=== PATIENT | female | born 1990 | race Asian ===

== ENCOUNTER 2021-12-20 10:41 | Emergency (ER) | payer OTHER ==
[~2021-12-20] VITALS: Ht 170.2 cm; Wt 81.6 kg
[2021-12-20] MEDS ORDERED: MOBIC7.5 M1 PO (11:35)
[2021-12-20] MEDS ORDERED: CYCL10TA35 PO (11:35)
[2021-12-20 11:40] VITALS: BP 141/75; TEMP 97.4
== END 2021-12-20 11:40 | disposition home or self-care (01) ==
LOC: ED 10:41
DX: M54.59 Other low back pain (principal); R11.2 Nausea with vomiting, unspecified
CPT/HCPCS: 81000; 81025; 96372; 99283; J1885

== ENCOUNTER 2022-12-31 06:25 | Emergency (ER) | payer OTHER ==
[~2022-12-31] VITALS: Ht 170.2 cm; Wt 78.9 kg
[~2022-12-31 06:25] MED LIST: CYCL10TA35 PO; MOBIC7.5 M1 PO
[2022-12-31 06:30] VITALS: TEMP 98.3
[2022-12-31 07:17] VITALS: BP 123/75
== END 2022-12-31 07:17 | disposition home or self-care (01) ==
LOC: ED 06:25
DX: T19.2XXA Foreign body in vulva and vagina, initial encounter (principal); Z71.1 Person with feared health complaint in whom no diagnosis is made; Y92.89 Other specified places as the place of occurrence of the external cause
CPT/HCPCS: 99283